=== PATIENT | female | born 1940 | race Caucasian/White ===

== ENCOUNTER 2016-08-05 13:25 | Outpatient (CLI) | payer OTHER, MEDICARE ==
[~2016-08-05 13:25] MED LIST: FLONASE AL50 MCG/ACT IN; LEVOTHYROXINE100 MCG PO; LEVOTHYROXINE112 MCG PO; VITAMIN D-31000 UNIT PO
--- NOTE | 2016-08-05 15:56 | DIAGNOSTIC IMAGING REPORT ---
PROCEDURE: MG BILATERAL DIAGNOSTIC W/CAD INDICATION: Palpable area, pain, and discoloration of lateral areolar region of right breast. TECHNIQUE: CC and MLO digital views of each breast with true-lateral digital view of the right breast. In addition, spot compression CC and MLO views were obtained of the lateral anterior right breast (region of clinical concern). Finally, high-resolution right breast ultrasound was performed (18 mHz). COMPARISON: Comparison is made to screening mammogram studies from [facility] imaging on 01/20/2015, 01/19/2014, and 01/18/2013. FINDINGS: MAMMOGRAM: Computer-aided detection applied. Mildly dense parenchymal pattern. There is a vague 2.5 cm area of skin thickening on the lateral periareolar region of the right breast. BREAST ULTRASOUND: There is a 2.5 x 1.3 x 0.7 cm heterogeneous area of cutaneous and subcutaneous thickening in the lateral periareolar region of the left breast, which accounts for the palpable area and mammographic findings. IMPRESSION: 1. There is a vague 2.5 cm area of skin thickening in the lateral areolar region of the right breast. While this may could be due to occult trauma or inflammatory process (e.g., insect bite), underlying malignant process should also be considered (e.g., Paget's disease of the nipple). As such, tissue biopsy is recommended. 2. Findings discussed with the patient. 3. Findings called to Dr. Adore Gambino. RESULT CODE: 4- Suspicious abnormality - biopsy should be considered. A. A negative report should not delay biopsy if a dominant or clinically suspicious mass is present. 10-15% of cancers are not identified by x-ray. B. A negative report may reinforce clinical impression. C. Adenosis and dense breasts may obscure an underlying neoplasm. D. False positive reports average 6-10%. E.. A yearly screening mammogram is recommended. A reminder letter will be scheduled.
== END 2016-08-05 23:00 ==
LOC: MAM SRH 13:25
DX: N63 Unspecified lump in breast (principal)